=== PATIENT | female | born 1980 | race Caucasian/White ===

== ENCOUNTER 2021-02-20 11:26 | Outpatient (CLI) | payer OTHER ==
[~2021-02-20] VITALS: Ht 167.6 cm; Wt 66.7 kg
[~2021-02-20 11:26] MED LIST: B-12100021 PO; FERR325T3 PO; PRED20TA PO; PREN1MIS PO
[2021-02-20] MEDS ORDERED: IRON SUCROSE 300 MG in NS 250 ML OVER 90 MIN. IV ONE (11:30)
[2021-02-20 11:40] VITALS: BP 121/66
[2021-02-20 13:55] VITALS: BP 116/64
== END 2021-02-20 13:55 | disposition home or self-care (01) ==
LOC: M INFU 11:26
PROVIDERS: ATTEND Obstetrics & Gynecology
DX: O99.013 Anemia complicating pregnancy, third trimester (principal); D50.9 Iron deficiency anemia, unspecified; Z3A.30 30 weeks gestation of pregnancy
CPT/HCPCS: 96365; 96366; J1756

== ENCOUNTER 2021-02-27 11:31 | Outpatient (CLI) | payer OTHER ==
[~2021-02-27 11:31] MED LIST changes: +IRON SUCROSE 300 MG in NS 250 ML OVER 90 MIN. IV ONE
[2021-02-27 11:35] VITALS: BP 135/69
[2021-02-27 14:00] VITALS: BP 111/59
== END 2021-02-27 14:10 | disposition home or self-care (01) ==
LOC: M INFU 11:31
PROVIDERS: ATTEND Obstetrics & Gynecology
DX: O99.019 Anemia complicating pregnancy, unspecified trimester (principal); D50.9 Iron deficiency anemia, unspecified; Z3A.30 30 weeks gestation of pregnancy
CPT/HCPCS: 96365; 96366; J1756

== ENCOUNTER → 2021-03-01 | Outpatient (CLI) | payer OTHER ==
[~2021-03-01] MED LIST changes: -IRON SUCROSE 300 MG in NS 250 ML OVER 90 MIN. IV ONE
[2021-03-01 10:26] LABS: HEMATOCRIT 31.6 % (36.0-47.0); HEMOGLOBIN 10.3 g/dl (12.0-15.5); MEAN CORPUSCULAR HEMOGLOBIN 27.5 pg (27.0-33.0); MEAN CORPUSCULAR HGB CONC 32.6 g/dl (32.0-36.5); MEAN CORPUSCULAR VOLUME 84.3 fl (80.0-96.0); PLATELET COUNT, AUTOMATED 175 10^3/uL (150-450); RED BLOOD COUNT 3.75 10^6/uL (4.00-5.40); WHITE BLOOD COUNT 17.1 10^3/uL (4.0-10.0)
[2021-03-01 10:44] LABS: PERCENT SATURATION 17.6 % (13.2-45.0)
== END ==
LOC: M LAB 09:53
PROVIDERS: ATTEND Obstetrics & Gynecology
DX: D69.3 Immune thrombocytopenic purpura (principal)

== ENCOUNTER 2021-03-09 08:22 | Outpatient (CLI) | payer OTHER ==
[~2021-03-09] VITALS: Ht 162.6 cm; Wt 67.2 kg
[~2021-03-09 08:22] MED LIST changes: +IRON SUCROSE 300 MG in NS 250 ML OVER 90 MIN. IV ONE
[2021-03-09 08:25] VITALS: BP 120/56
[2021-03-09 09:30] VITALS: BP 111/56
[2021-03-09 10:30] VITALS: BP 114/56
[2021-03-09 11:30] VITALS: BP 125/71
== END 2021-03-09 11:30 | disposition home or self-care (01) ==
LOC: M INFU 08:22
PROVIDERS: ATTEND Obstetrics & Gynecology
DX: O99.013 Anemia complicating pregnancy, third trimester (principal); D50.9 Iron deficiency anemia, unspecified; Z3A.30 30 weeks gestation of pregnancy
CPT/HCPCS: 96365; 96366; J1756

== ENCOUNTER 2021-04-17 05:35 | Inpatient (IN) | payer OTHER ==
[2021-04-17] VITALS (8 sets, daily range): BP systolic 115–128; BP diastolic 59–76
[~2021-04-17] VITALS: Ht 162.6 cm; Wt 72.2 kg
[~2021-04-17 05:35] MED LIST changes: -IRON SUCROSE 300 MG in NS 250 ML OVER 90 MIN. IV ONE
[2021-04-17] MEDS ORDERED: HOME MED LIST COMPLETE! XX SCH (05:50)
[2021-04-17] MEDS ORDERED: LACTATED RINGER'S 1000 ML IV ONE ×2 (05:55→17:25)
[2021-04-17] MEDS ORDERED: BICITRA 30ML SOLN UDC PO ONE (06:00)
[2021-04-17] MEDS ORDERED: ACETAMINOPHEN 650 MG SUPP PR ONE (06:00)
[2021-04-17] MEDS ORDERED: ceFAZolin SOD 2 GM in IV 1 EA IV ONE (06:00)
[2021-04-17] MEDS: LR 1,000 ML IV SCH ×3 (06:00→22:12)
[2021-04-17] MEDS ORDERED: AZITHROMYCIN INJ 500 MG, VIAL MATE ADAPTER 1 EACH in NS 250 ML IV ONE (06:00)
[2021-04-17] MEDS ORDERED: BUPIVACAINE HCL 0.25% 10ML VIAL SC ONE (06:00)
[2021-04-17 06:23] LABS: HEMATOCRIT 38.3 % (36.0-47.0); HEMOGLOBIN 12.5 g/dl (12.0-15.5); MEAN CORPUSCULAR HEMOGLOBIN 27.2 pg (27.0-33.0); MEAN CORPUSCULAR HGB CONC 32.6 g/dl (32.0-36.5); MEAN CORPUSCULAR VOLUME 83.3 fl (80.0-96.0); PLATELET COUNT, AUTOMATED 129 10^3/uL (150-450); WHITE BLOOD COUNT 12.9 10^3/uL (4.0-10.0)
[2021-04-17] MEDS ORDERED: ONDANSETRON 4MG/2ML VIAL IV PRN ×2 (07:52→09:20)
[2021-04-17] MEDS ORDERED: NALOXONE INJ 0.4MG/1ML VIAL (J2310 PER 1MG) IV PRN ×2 (07:52)
[2021-04-17] MEDS ORDERED: METOCLOPRAMIDE INJ 10MG/2ML VIAL (J2765 PER 1) IV PRN ×2 (07:52→09:20)
[2021-04-17] MEDS ORDERED: NALBUPHINE HCL 10 MG/ML AMP (J2300) IV PRN (07:52)
[2021-04-17] MEDS ORDERED: diphenhydrAMINE 50MG/ML VIAL (J1200) IV PRN (07:52)
[2021-04-17] MEDS ORDERED: OXYTOCIN DRIP 30 UNITS in IV 1 EA IV PRN ×4 (07:55)
[2021-04-17] MEDS ORDERED: METHYLERGONOVINE MALEATE 0.2 MG/ML VIAL (J2210) IM PRN ×2 (07:55→09:05)
[2021-04-17] MEDS ORDERED: OXYTOCIN INJ 10 UNITS/ML VIAL (J2590) IV PRN (07:55)
[2021-04-17] MEDS ORDERED: OXYTOCIN 30 UNITS IN 0.9% NaCl 500ML IV BAG (J2590) As Ordered ONE ×2 (08:00→09:07)
[2021-04-17] MEDS ORDERED: ONDANSETRON 4MG/2ML VIAL As Ordered ONE (08:00)
[2021-04-17] MEDS ORDERED: ACETAMINOPHEN 1000MG 100ML IV BTL (OFIRMEV) (J0131 PER 10MG) As Ordered ONE (08:00)
[2021-04-17] MEDS ORDERED: MORPHINE PRES-FREE INJ 10 MG/10 ML VIAL (J2274) As Ordered ONE (08:00)
[2021-04-17] MEDS ORDERED: OXYTOCIN INJ 10 UNITS/ML VIAL (J2590) As Ordered ONE (08:11)
[2021-04-17] MEDS ORDERED: PHENYLephrine 500MCG 5ML (100MCG/ML) SYRINGE As Ordered ONE (08:14)
[2021-04-17 08:38] LABS: CORD GAS ABE A -3.2; CORD GAS HCO3 A 24.9 MEQ/L; CORD GAS O2 SAT A 59.2 %; CORD GAS PCO2 A 56.5 mmHg; CORD GAS PH A 7.262 UNITS; CORD GAS PO2 A 26.1 mmHg; CORD GAS SBC A 20.8 MEQ/L; CORD GAS TCO2 A 26.6 MEQ/L
[2021-04-17 08:39] LABS: CORD GAS ABE V -2.9; CORD GAS HCO3 V 23.7 MEQ/L; CORD GAS O2 SAT V 72.7 %; CORD GAS PCO2 V 47.3 mmHg; CORD GAS PH V 7.317 UNITS; CORD GAS PO2 V 31.3 mmHg; CORD GAS SBC V 21.4 MEQ/L; CORD GAS TCO2 V 25.1 MEQ/L
[2021-04-17] MEDS: PRENATAL VITAMINS CHEWABLE TABLET PO SCH (09:00)
[2021-04-17] MEDS ORDERED: METHYLERGONOVINE MALEATE 0.2 MG TAB PO PRN (09:05)
[2021-04-17] MEDS ORDERED: PERCOCET 5MG/325MG TAB PO PRN ×3 (09:05→09:20)
[2021-04-17] MEDS ORDERED: RHOGAM 300 MCG (1500 IU) INJ (J2790) IM SCH (09:05)
[2021-04-17] MEDS ORDERED: ACETAMINOPHEN 500 MG TAB PO PRN (09:05)
[2021-04-17] MEDS ORDERED: SIMETHICONE 80MG CHEW TAB PO PRN (09:05)
[2021-04-17] MEDS ORDERED: MOM 30ML SUSPENSION UDC PO PRN (09:05)
[2021-04-17] MEDS ORDERED: ANUSOL HC CREAM 30GM TOP PRN (09:05)
[2021-04-17] MEDS ORDERED: DOCUSATE SODIUM 100MG CAPSULE PO PRN (09:05)
[2021-04-17] MEDS ORDERED: ACETAMINOPHEN TAB 650MG DOSE (2X325MG) PO PRN (09:05)
[2021-04-17] MEDS ORDERED: OXYTOCIN DRIP 30 UNITS in IV 1 EA IV ONE (09:05)
[2021-04-17] MEDS ORDERED: predniSONE 20 MG TAB PO ONE (09:15)
[2021-04-17] MEDS ORDERED: KETOROLAC 30 MG/ML 1ML VIAL IV PRN (09:20)
[2021-04-17] MEDS ORDERED: LR 1,000 ML IV SCH (09:20)
[2021-04-17] MEDS ORDERED: fentaNYL 100 MCG/2 ML INJECTION IV PRN (09:20)
[2021-04-17] MEDS ORDERED: KETOROLAC 30 MG/ML 1ML VIAL As Ordered ONE (10:00)
[2021-04-17] MEDS: KETOROLAC 30 MG/ML 1ML VIAL IV SCH ×2 (16:27→22:12)
[2021-04-18 02:00] VITALS: BP 122/68
[2021-04-18] MEDS: KETOROLAC 30 MG/ML 1ML VIAL IV SCH (03:46)
[2021-04-18 06:00] VITALS: BP 109/52
[2021-04-18] MEDS: LR 1,000 ML IV SCH (06:00)
[2021-04-18] MEDS: PRENATAL VITAMINS CHEWABLE TABLET PO SCH (09:00)
[2021-04-18 09:54] LABS: HEMATOCRIT 32.9 % (36.0-47.0); HEMOGLOBIN 10.6 g/dl (12.0-15.5); MEAN CORPUSCULAR HEMOGLOBIN 27.3 pg (27.0-33.0); MEAN CORPUSCULAR HGB CONC 32.2 g/dl (32.0-36.5); MEAN CORPUSCULAR VOLUME 84.8 fl (80.0-96.0); PLATELET COUNT, AUTOMATED 110 10^3/uL (150-450); RED BLOOD COUNT 3.88 10^6/uL (4.00-5.40); WHITE BLOOD COUNT 13.7 10^3/uL (4.0-10.0)
[2021-04-18 10:00] VITALS: BP 124/68
[2021-04-18 14:00] VITALS: BP 144/63
[2021-04-18] MEDS: IBUPROFEN 600MG TAB PO PRN ×2 (14:10→20:18)
[2021-04-18 18:00] VITALS: BP 139/63
[2021-04-18 22:13] VITALS: BP 133/73
[2021-04-19 02:14] VITALS: BP 114/64
[2021-04-19] MEDS: IBUPROFEN 600MG TAB PO PRN ×2 (02:14→08:24)
[2021-04-19 06:00] VITALS: BP 101/58
[2021-04-19] MEDS ORDERED: IBUP-1022 PO (07:53)
[2021-04-19] MEDS ORDERED: ACET1TAB55 PO (07:53)
[2021-04-19] MEDS ORDERED: PERCOCET PO (07:53)
[2021-04-19] MEDS: PRENATAL VITAMINS CHEWABLE TABLET PO SCH (08:24)
== END 2021-04-19 11:40 | disposition home or self-care (01) | DRG 772 ==
LOC: M LDI 05:35 → M OBS 10:40
PROVIDERS: ADMIT Obstetrics & Gynecology; ATTEND Obstetrics & Gynecology
PROC: 10D00Z1 Extraction of Products of Conception, Low, Open Approach (ICD-10-PCS; principal; 2021-04-17 07:30)
DX: O34.211 Maternal care for low transverse scar from previous cesarean delivery (principal); O99.12 Other diseases of the blood and blood-forming organs and certain disorders involving the immune mechanism complicating childbirth; D69.3 Immune thrombocytopenic purpura; Z3A.39 39 weeks gestation of pregnancy; Z37.0 Single live birth; O09.513 Supervision of elderly primigravida, third trimester; O99.824 Streptococcus B carrier state complicating childbirth; O69.81X0 Labor and delivery complicated by cord around neck, without compression, not applicable or unspecified